=== PATIENT | male | born 2000 | race African-American/Black ===

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

== ENCOUNTER 2023-09-08 16:18 | Emergency (ER) | payer SELFPAY ==
[~2023-09-08] VITALS: Ht 180.3 cm; Wt 70.2 kg
[~2023-09-08 16:18] MED LIST changes: +KETOROLAC TROMETHAMINE 30 MG/ML SDV IM ONE
[2023-09-08 16:30] VITALS: BP 125/79
[2023-09-08] MEDS ORDERED: AMOXICILLIN500 MG PO (16:39)
[2023-09-08] MEDS ORDERED: CLEOCIN300 MG PO (16:39)
[2023-09-08] MEDS ORDERED: ACETAMINOPHEN 500 MG TAB PO ONE (16:40)
[2023-09-08] MEDS ORDERED: KETOROLAC TROMETHAMINE 30 MG/ML SDV IM ONE (16:40)
[2023-09-08 16:45] VITALS: BP 129/85
[2023-09-08 17:00] VITALS: BP 121/81
[2023-09-08 17:17] VITALS: BP 121/81
== END 2023-09-08 17:18 | disposition home or self-care (01) | DRG 159 ==
LOC: ED 16:18
DX: K08.89 Other specified disorders of teeth and supporting structures (principal); F17.210 Nicotine dependence, cigarettes, uncomplicated; F17.290 Nicotine dependence, other tobacco product, uncomplicated